=== PATIENT | female | born 1935 | race Caucasian/White ===

== ENCOUNTER → 2016-09-16 | Outpatient (CLI) | payer OTHER, BC ==
[2016-09-16 16:57] LABS: HEMATOCRIT 47.8 % (37-47); MEAN CELL VOLUME 91.9 fL (80-100); MEAN CORPUSCULAR HEMOGLOBIN 31.5 pg (25-34); MEAN CORPUSCULAR HGB CONC 34.3 g/dl (32-36); MEAN PLATELET VOLUME 10.1 fL (7.4-10.4); PLATELET COUNT 216 K/uL (130-400); WHITE BLOOD COUNT 7.06 K/uL (4.8-10.8)
[2016-09-16 17:16] LABS: ALB/GLOB RATIO 1.2 (0.9-2); ALT/SGPT 24 U/L (12-78); AST/SGOT 22 U/L (15-37); BLOOD UREA NITROGEN 22 mg/dl (7-18); BUN/CREATININE RATIO 22.2 (10-20); CALCIUM 8.4 mg/dl (8.5-10.1); CARBON DIOXIDE 25 mmol/L (21-32); CHLORIDE 109 mmol/L (98-107); CHOLESTEROL 212 mg/dl (0-200); GLUCOSE 89 mg/dl (70-99); POTASSIUM 4.1 mmol/L (3.5-5.1); SODIUM 144 mmol/L (136-145); TRIGLYCERIDES 145 mg/dl (0-150); VERY LOW DENSITY LIPOPROT CALC 29 mg/dl
[2016-09-16 17:23] LABS: ALKALINE PHOSPHATASE 80 U/L (45-117); CHOLESTEROL/HDL RATIO 3.2; HDL CHOLESTEROL 66 mg/dl; LDL CHOLESTEROL CALCULATED 117 mg/dl
== END | disposition home or self-care (01) ==
LOC: C.LABBFT 15:12
PROVIDERS: ATTEND Internal Medicine
DX: E78.5 Hyperlipidemia, unspecified (principal)

== ENCOUNTER 2020-05-08 18:54 | Inpatient (IN) ==
[2020-05-08 19:41] LABS: Basophils # (auto) 0.03 K/uL (0-0.2); Basophils % (auto) 0.3 %; Eosinophils % (auto) 3.2 %; Hematocrit (blood only) 45.7 % (37-47); Hemoglobin 14.7 g/dL (12.0-16.0); Immature Granulocytes # (auto) 0.06 K/uL (0.00-0.02); Immature Granulocytes % (auto) 0.6 %; Lymphocytes # (auto) 2.11 K/uL (1.2-3.4); Lymphocytes % (auto) 22.8 %; Mean Corpuscular Hemoglobin 29.3 pg (25-34); Mean Corpuscular Hgb Conc 32.2 g/dL (32-36); Mean Corpuscular Volume 91.2 fL (80-100); Mean Platelet Volume 9.5 fL (7.4-10.4); Monocytes # (auto) 0.68 K/uL (0.11-0.59); Monocytes % (auto) 7.3 %; Neutrophils # (auto) 6.09 K/uL (1.4-6.5); Neutrophils % (auto) 65.8 %; Platelet Count 253 K/uL (130-400); RDW Standard Deviation 56.5 fL (36.4-46.3); Red Blood Count 5.01 M/uL (4.2-5.4); White Blood Count 9.27 K/uL (4.8-10.8)
[2020-05-08 19:44] LABS: Appearance Urine Clear (Clear); Bacteria Urine Automated Negative (Negative); Bilirubin Urine Negative (Negative); Blood Urine Negative (Negative); Color Urine Yellow; Epithelial Cell Urine Auto >30 /lpf (0-5); Glucose Urine UA Negative (Negative); Ketones Urine Negative (Negative); Leukocyte Esterase Urine Trace (Negative); Nitrite Urine Negative (Negative); Protein Urine Negative (Negative); RBC Urine Automated 0-4 /hpf (0-4); Specific Gravity Urine 1.017 (1.000-1.030); Urobilinogen Urine Negative (Negative); pH Urine 5.5 (4.5-7.5)
--- NOTE | 2020-05-08 19:53 | XRay Report ---
XR chest 1V portable HISTORY: 84 years-old Female Chest Pain acute atypical chest pain COMPARISON: Chest radiograph 12/02/2018 TECHNIQUE: Portable AP view of the chest FINDINGS: Cardiac silhouette is mildly enlarged, unchanged. Calcified plaque of the thoracic aortic arch. No pn eumothorax, pleural effusion, airspace consolidation or overt pulmonary edema. Degenerative changes o f the shoulders and spine. Levoscoliosis of the lower thoracic spine. IMPRESSION: No acute process. ACT 112: Negative or not required by law. The above report was generated using voice recognition software. It may contain grammatical, syntax o r spelling errors. Electronically signed by: Kevin Garcia M.D. 05/08/2020 7:52 PM
[2020-05-08 20:10] LABS: Alanine Aminotransferase 48 U/L (12-78); Albumin Globulin Ratio 0.7 (0.9-2); Albumin Level 2.7 gm/dl (3.4-5.0); Alkaline Phosphatase 241 U/L (45-117); BUN Creatinine Ratio 19.1 (10-20); Bilirubin,Total 0.7 mg/dl (0.2-1); Blood Urea Nitrogen 19 mg/dl (7-18); Calcium 8.9 mg/dl (8.5-10.1); Carbon Dioxide 26 mmol/L (21-32); Chloride 110 mmol/L (98-107); Creatinine Clr Calc Pharmacy 28.7 ml/min; Est GFR (African American) 58.4; Est GFR (Non-African American) 50.4; Globulin 3.9 gm/dl (2.5-4.0); Glucose 70 mg/dl (70-99); NT Pro B Type Natriuretic Pept 3551 pg/ml (0-1800); Phosphorus 3.6 mg/dl (2.5-4.9); Sodium 143 mmol/L (136-145); Total Protein 6.6 gm/dl (6.4-8.2)
[2020-05-08 20:12] LABS: Lipase 159 U/L (73-393); Troponin I < 0.015 ng/ml (0-0.045)
--- NOTE | 2020-05-08 20:15 | CT Scan Report ---
CT head/brain wo con CLINICAL HISTORY: 84 years-old Female with fall pain. Acute head and neck injury status post fall TECHNIQUE: Multiple axial CT images of the head were obtained without contrast. A dose lowering tech nique was utilized adhering to the principles of ALARA. COMPARISON: CT cervical spine of same day FINDINGS: No acute intracranial hemorrhage, midline shift, intracranial mass, hydrocephalus, territorial ischem ia or abnormal extra-axial collection. Age-related involutional changes. Patchy white matter hypodens ities suggest chronic microvascular ischemic disease. Cerebral vascular calcifications. The calvarium is intact. Left posterior parietal scalp hematoma, 2.9 x 1.0 cm. No opaque foreign body . Prior bilateral lens replacement. The paranasal sinuses, mastoid air cells, and middle ear cavities are clear. IMPRESSION: 1. No acute intracranial abnormality or calvarial fracture. 2. Small left posterior parietal scalp hematoma. ACT 112: Negative or not required by law. The above report was generated using voice recognition software. It may contain grammatical, syntax o r spelling errors. Electronically signed by: Kevin Garcia M.D. 05/08/2020 8:14 PM
--- NOTE | 2020-05-08 20:21 | CT Scan Report ---
CT cervical spine wo con CLINICAL HISTORY: 84 years-old Female with pain fall. Acute neck pain status post fall COMPARISON: MRI cervical spine 04/08/2007 TECHNIQUE: Multiple axial CT images of the cervical spine were obtained without contrast. A dose low ering technique was utilized adhering to the principles of ALARA. FINDINGS: Demineralized appearance of the bones. Kyphotic curvature of the mid cervical spine. 3 mm anterolisth esis C2 on C3, 2 mm anterolisthesis C7 on T1, both of which are likely on a degenerative basis. Sever e degeneration with partially calcified pannus at the C1-C2 articulation. There is advanced multileve l disc space narrowing and spondylitic spurring with moderate posterior disc osteophyte complex forma tions and severe facet arthrosis. No definite acute fracture or subluxation. Convex left curvature. M ultilevel foraminal narrowing. Mastoid air cells and middle ear cavities are clear. No pneumothorax. No paravertebral edema. Calcified plaque of the carotid bulbs and proximal internal carotid arteries. Multinodular thyroid. IMPRESSION: 1. No acute fracture or subluxation. 2. Kyphotic curvature with advanced multilevel degenerative changes as above. ACT 112: Negative or not required by law. The above report was generated using voice recognition software. It may contain grammatical, syntax o r spelling errors. Electronically signed by: Kevin Garcia M.D. 05/08/2020 8:19 PM
--- NOTE | 2020-05-08 20:44 | CT Scan Report ---
CT chest wo con, CT abd pelvis wo con CT DOSE: 1364.14 mGy.cm CLINICAL HISTORY: 84 years-old Female with pain fall. Acute chest and abdominal trauma status post f all TECHNIQUE: Multiaxial CT images of the chest, abdomen and pelvis were performed without contrast. A dose lowering technique was utilized adhering to the principles of ALARA. COMPARISON: CT abdomen and pelvis 06/19/2019 FINDINGS: CT CHEST: 1.2 cm right thyroid nodule. No adenopathy. Moderate cardiomegaly with moderate to extensive coronary artery calcifications. No thoracic aortic aneurysm. Calcified plaque of the thoracic aorta. No media stinal hematoma identified. There is no pneumothorax or pleural effusion. Respiratory motion artifact limits evaluation of the lungs. Mild emphysema with bronchial wall thickening suggestive of bronchit is. Mild linear subsegmental atelectasis of the medial segment right middle lobe and inferior segment lingula. 3 mm calcified granuloma of the basal left lower lobe. Mild tracheobronchial secretions. Br east parenchyma and soft tissues are unremarkable. Degenerative changes of the shoulders and spine. N o acute fracture identified. Suggestion of a few healed remote left-sided rib fractures. CT ABDOMEN/PELVIS: Motion degraded exam. Study is limited without the use of IV contrast. No pneumatosis or pneumoperito neum. Unremarkable spleen, adrenal glands and pancreas. Mildly distended gallbladder. Unenhanced live r appears unremarkable. Mild nonspecific bilateral perinephric stranding. Probable cyst of the bilate ral kidneys redemonstrated. There is a 2 mm calcification of the inferior pole left kidney suggestive of a calculus versus ureteral calcification. 7 mm nonobstructing calculus of the left renal pelvis. Mildly distended urinary bladder. 3.9 x 3.0 cm ovoid cystic lesion of the right adnexum redemonstrate d with an adjacent irregular 1.3 cm calcification. Visualized uterus is unremarkable. Calcified plaqu e and tortuosity of the abdominal aorta. No adenopathy. Small hiatal hernia. No bowel obstruction or bowel wall thickening. Fluid. Colonic diverticulosis wit hout acute diverticulitis. Noninflamed appendix. Mild generalized body wall edema. Demineralized appe arance of the bones. Degenerative changes of the spine, pelvis and hips. No acute fracture. Lumbar le voscoliosis. IMPRESSION: 1. Motion degraded exam without acute posttraumatic intrathoracic, intra-abdominal or intrapelvic abn ormality identified. 2. No acute fracture. 3. Unchanged ovoid 3.9 cm cystic lesion of the right adnexum with mural calcification. 4. Colonic diverticulosis without acute diverticulitis. 5. Nonobstructing left nephrolithiasis includes a 7 mm calculus of the left renal pelvis. 6. Additional findings as above. ACT 112: Negative or not required by law. Electronically signed by: Kevin Garcia M.D. 05/08/2020 8:42 PM
[2020-05-08 20:48] LABS: Potassium 3.6 mmol/L (3.5-5.1)
[2020-05-08 20:53] LABS: Bilirubin Direct 0.2 mg/dl (0-0.2); Magnesium 2.2 mg/dl (1.8-2.4)
[2020-05-08 20:59] LABS: Partial Thromboplastin Ratio 1.6; Prothrombin Time 10.2 Seconds (9.0-12.0)
[2020-05-08 21:24] LABS: Partial Thromboplastin Time 45.3 Seconds (21.0-31.0)
[2020-05-08] MEDS ORDERED: SODIUM CHLORIDE 0.9% 250 ML IV ONE (22:00)
--- NOTE | 2020-05-08 22:41 | Emergency Department Note ---
Impression & Plan Generalized weakness, Recurrent falls, Hematoma of left parietal scalp ED Provider Note NAME: ROSI THOMAS AGE: 84 SEX: F ARRIVES VIA: Ambulance INFORMANT: Patient, ED PROVIDER(S): Lewis Medina MD CHIEF COMPLAINT: Recurrent falls, back pain, weakness PLAN: Disposition: Admit MEDICAL DECISION MAKING: The patient is a pleasant 84-year-old woman with a past medical history of COPD/emphysema, migraine headaches, nephrolithiasis, depression with anxiety, suspected early dementia presents emergency department accompanied by her sister with concern for generalized weakness and frequent falls with complaints of back pain and decreased urination. She was seen by her PCPs office yesterday for evaluation of similar symptoms and was offered physical therapy to help with generalized strengthening but she declined at that time. She was also being managed for lower extremity edema which had improved while on Lasix. However there was concern about having borderline hypotension and so there were no dose adjustments made. The patient denies any chest pain, shortness of breath, nausea, vomiting, diarrhea, urinary symptoms, fevers, chills. On arrival the patient is fatigued appearing but no acute distress, afebrile wi th stable vital signs. She appears clinically dry though with residual lower extremity edema. She has a scant intermittent wheeze but is otherwise clear. She has mild tenderness of the paraspinal muscles of her thoracic and lumbar spine without midline tenderness or step-offs. She has generalized weakness throughout with 4/5 strength in all extremities. There is no focal weakness. Pelvis and hips are stable with full range of motion. EKG without overt acute ischemia. Chest x-ray negative for acute process. CT of the head, C-spine, chest, abdomen pelvis negative for acute traumatic fin dings. WBC, H/H and platelets within normal limits. Chemistry without acidosis. Electrolytes and LFTs unremarkable. Troponin negative/undetectable. BNP 3500 without prior values for comparison. UA without convincing evidence of infection. I did review the patient's findings with the patient and her sister at the bedside. We did discuss the patient's symptoms of generalized weakness and concern for her safety at home. Ultimately the patient was agreeable for admission for PT OT evaluation and potential placement for strengthening. Dr. Graves, [facility] hospitalist, will evaluate the patient for admission. Triage Nursing notes reviewed and agree them. Additional history obtained from sister Prior medical records reviewed Vital Signs: reviewed and remarkable for no significant abnormalities Differential diagnosis: Infection, dehydration, metabolic abnormality, hypo/hyperglycemia, electrolyte disturbance, anemia, hypoxia, cardiac sources, intracerebral event, toxicologic, neurologic, as well as other pathologies. ER treatment provided: See below. Diagnostics interpreted by me: ECG: Sinus bradycardia, 57 bpm, incomplete right bundle branch block, nonspecific ST abnormality, no overt ST elevation, QTc 482, QRS 92. Cardiac Monitoring: An order for continuous cardiac monitoring was placed and demonstrated Sinus bradycardia, 57 bpm, no ectopy. Laboratory studies: See below Imaging studies: XR chest 1V portable HISTORY: 84 years-old Female Chest Pain acute atypical chest pain COMPARISON: Chest radiograph 12/02/2018 TECHNIQUE: Portable AP view of the chest FINDINGS: Cardiac silhouette is mildly enlarged, unchanged. Calcified plaque of the thoracic aortic arch. No pneumothorax, pleural effusion, airspace consolidation or overt pulmonary edema. Degenerative changes of the shoulders and spine. Levoscoliosis of the lower thoracic spine. IMPRESSION: No acute process. CT head/brain wo con CLINICAL HISTORY: 84 years-old Female with fall pain. Acute head and neck injury status post fall TECHNIQUE: Multiple axial CT images of the head were obtained without contrast. A dose lowering technique was utilized adhering to the principles of ALARA. COMPARISON: CT cervical spine of same day FINDINGS: No acute intracranial hemorrhage, midline shift, intracranial mass, hydrocephalus, territorial ischemia or abnormal extra-axial collection. Age- related involutional changes. Patchy white matter hypodensities suggest chronic microvascular ischemic disease. Cerebral vascular calcifications. The calvarium is intact. Left posterior parietal scalp hematoma, 2.9 x 1.0 cm. No opaque foreign body. Prior bilateral lens replacement. The paranasal sinuses, mastoid air cells, and middle ear cavities are clear. IMPRESSION: 1. No acute intracranial abnormality or calvarial fracture. 2. Small left posterior parietal scalp hematoma. ACT 112: Negative or not required by law. -- CT cervical spine wo con CLINICAL HISTORY: 84 years-old Female with pain fall. Acute neck pain status post fall COMPARISON: MRI cervical spine 04/08/2007 TECHNIQUE: Multiple axial CT images of the cervical spine were obtained without contrast. A dose lowering technique was utilized adhering to the principles of ALARA. FINDINGS: Demineralized appearance of the bones. Kyphotic curvature of the mid cervical spine. 3 mm anterolisthesis C2 on C3, 2 mm anterolisthesis C7 on T1, both of which are likely on a degenerative basis. Severe degeneration with partially calcified pannus at the C1-C2 articulation. There is advanced multilevel disc space narrowing and spondylitic spurring with moderate posterior disc osteophyte complex formations and severe facet arthrosis. No definite acute fracture or subluxation. Convex left curvature. Multilevel foraminal narrowing. Mastoid air cells and middle ear cavities are clear. No pneumothorax. No paravertebral edema. Calcified plaque of the carotid bulbs and proximal internal carotid arteries. Multinodular thyroid. IMPRESSION: 1. No acute fracture or subluxation. 2. Kyphotic curvature with advanced multilevel degenerative changes as above. -- CT chest wo con, CT abd pelvis wo con CT DOSE: 1364.14 mGy.cm CLINICAL HISTORY: 84 years-old Female with pain fall. Acute chest and abdominal trauma status post fall TECHNIQUE: Multiaxial CT images of the chest, abdomen and pelvis were performed without contrast. A dose lowering technique was utilized adhering to the principles of ALARA. COMPARISON: CT abdomen and pelvis 06/19/2019 FINDINGS: CT CHEST: 1.2 cm right thyroid nodule. No adenopathy. Moderate cardiomegaly with moderate to extensive coronary artery calcifications. No thoracic aortic aneurysm. Calcified plaque of the thoracic aorta. No mediastinal hematoma identified. There is no pneumothorax or pleural effusion. Respiratory motion artifact limits evaluation of the lungs. Mild emphysema with bronchial wall thickening suggestive of bronchitis. Mild linear subsegmental atelectasis of the medial segment right middle lobe and inferior segment lingula. 3 mm calcified granuloma of the basal left lower lobe. Mild tracheobronchial secretions. Breast parenchyma and soft tissues are unremarkable. Degenerative changes of the shoulders and spine. No acute fracture identified. Suggestion of a few healed remote left-sided rib fractures. CT ABDOMEN/PELVIS: Motion degraded exam. Study is limited without the use of IV contrast. No pneumatosis or pneumoperitoneum. Unremarkable spleen, adrenal glands and pancreas. Mildly distended gallbladder. Unenhanced liver appears unremarkable. Mild nonspecific bilateral perinephric stranding. Probable cyst of the bilateral kidneys redemonstrated. There is a 2 mm calcification of the inferior pole left kidney suggestive of a calculus versus ureteral calcification. 7 mm nonobstructing calculus of the left renal pelvis. Mildly distended urinary bladder. 3.9 x 3.0 cm ovoid cystic lesion of the right adnexum redemonstrated with an adjacent irregular 1.3 cm calcification. Visualized uterus is unremarkable. Calcified plaque and tortuosity of the abdominal aorta. No adenopathy. Small hiatal hernia. No bowel obstruction or bowel wall thickening. Fluid. Colonic diverticulosis without acute diverticulitis. Noninflamed appendix. Mild generalized body wall edema. Demineralized appearance of the bones. Degenerative changes of the spine, pelvis and hips. No acute fracture. Lumbar levoscoliosis. IMPRESSION: 1. Motion degraded exam without acute posttraumatic intrathoracic, intra- abdominal or intrapelvic abnormality identified. 2. No acute fracture. 3. Unchanged ovoid 3.9 cm cystic lesion of the right adnexum with mural calcification. 4. Colonic diverticulosis without acute diverticulitis. 5. Nonobstructing left nephrolithiasis includes a 7 mm calculus of the left renal pelvis. 6. Additional findings as above. Consultation(s): Dr. Graves, [facility] hospitalist. HPI: The patient is a pleasant 84-year-old woman with a past medical history of COPD/emphysema, migraine headaches, nephrolithiasis, depression with anxiety, suspected early dementia presents emergency department accompanied by her sister with concern for generalized weakness and frequent falls with complaints of back pain and decreased urination. She was seen by her PCPs office yesterday for evaluation of similar symptoms and was offered physical therapy to help with generalized strengthening but she declined at that time. She was also being managed for lower extremity edema which had improved while on Lasix. However there was concern about having borderline hypotension and so there were no dose adjustments made. The patient denies any chest pain, shortness of breath, nausea, vomiting, diarrhea, urinary symptoms, fevers, chills. ROS: See above HPI for pertinent positives & negatives. A total of 10 systems reviewed and were otherwise negative. PAST MEDICAL HISTORY:See Below PAST SURGICAL HISTORY:See Below FAMILY HISTORY:See Below SOCIAL HISTORY:See Below HOME MEDICATIONS:See Below ALLERGIES:See Below VITALS:See Below PHYSICAL EXAMINATION: GENERAL: Awake, alert, fatigued/cachectic-appearing, in no distress HENT: Normocephalic. Left posterior pariental scalp hematoma. No bony crepitus. Oropharynx with dry mucous membranes and otherwise unremarkable. EYES: Normal conjunctiva. Sclera non-icteric. NECK: Supple. No nuchal rigidity. FROM. No JVD. RESPIRATORY: Clear to auscultation. CARDIAC: Regular rate, normal rhythm. Extremities warm and well perfused. Pulses equal. ABDOMEN: Soft, non-distended. No tenderness to palpation. No rebound or guarding. No masses. RECTAL: Deferred. MUSCULOSKELETAL: Chest examination reveals no tenderness. The patient has severe kyphosis of her thoracic spine. No midline tenderness or step-offs though she does have mild tenderness of the paraspinal muscles of her thoracic and lumbar spine. No CVA tenderness to palpation. No joint edema. LOWER EXTREMITIES: Calves are equal size bilaterally and non-tender. No edema. No discoloration. NEURO: Normal sensorium. No focal sensory or motor deficits noted. Generalized weakness with 4/5 strength x4 extremities. SKIN: No rash or jaundice noted. Lewis Medina MD Past Med/Surg History Medical History Acute bronchitis COPD with chronic bronchitis and emphysema Cough Depression with anxiety Diplopia Disease of jaw Fatigue Gross hematuria Hearing loss Hematuria Impacted cerumen of both ears Impacted cerumen of right ear Itching of ear Kidney stone on left side Migraine headache Muscle spasm Neck pain Nephrolithiasis Sensorineural hearing loss (SNHL) of left ear with restricted hearing of right ear Sensorineural hearing loss of both ears Sinusitis, acute Tremor Vertigo Family History Mother Stroke syndrome Father Renal cancer Brother Prostate cancer Systemic lupus erythematosus Social History Smoking Status: Current every day smoker Tobacco Type: Cigarettes packs per day: 0.75; Current Living Situation: Alone current occupational status: retired Feels Safe at Home: Yes Allergies Allergies Allergy/AdvReac Type Severity Reaction Status Date / Time No Known Drug Allergies Allergy Verified 05/07/20 11:31 Home Meds Previous Rx's Medication Instructions Recorded betamethasone dipropionate 0.05 % 1 appln TOP BID #45 gm 02/19/20 topical cream furosemide 20 mg tablet 20 mg PO DAILY #30 tab 04/08/20 ofloxacin 0.3 % ear drops 5 drp OTIC (EAR) BID 7 Days #10 ml 04/08/20 cyclobenzaprine 10 mg tablet 10 mg PO TID PRN #90 tab 04/25/20 propranolol 60 mg capsule,24 60 mg PO DAILY #30 cap 04/25/20 hr,extended release sertraline 100 mg tablet 100 mg PO BID #60 tab 04/25/20 doxycycline hyclate 100 mg capsule 100 mg PO DAILY #30 cap 05/02/20 Results & Data (ED) Vital Signs Vital Signs - 24 hr 05/08/20 19:15 05/08/20 21:30 05/08/20 23:01 Temperature 36.6 C Temperature Source Oral Pulse Rate 60 78 Pulse Rate [Left Finger] 58 L Respiratory Rate 18 16 23 Respiratory Effort / Characteristics Non-Labored Spontaneous Respiratory Depth Normal Respiratory Pattern Regular Blood Pressure 112/82 134/66 Blood Pressure [Right Arm] 91/61 L Blood Pressure Mean 92 89 Blood Pressure Mean [Right Arm] 71 Pulse Oximetry 97 94 96 Oxygen Delivery Method Room Air Sepsis Recent Fever Within 48 Hours No Sepsis New/Unexplained Change in Mental Status N/A Sepsis Action Taken by Nursing No Action Required Laboratory Data Attestation: I reviewed the patient's lab results. Result diagrams: 05/08/20 19:33 05/08/20 20:29 Lab Results 05/08/20 05/08/20 05/08/20 Range/Units 19:33 19:33 19:33 WBC 9.27 (4.8-10.8) K/uL RBC 5.01 (4.2-5.4) M/uL Hgb 14.7 (12.0-16.0) g/dL Hct 45.7 (37-47) % MCV 91.2 (80-100) fL MCH 29.3 (25-34) pg MCHC 32.2 (32-36) g/dL RDW Std Deviation 56.5 H (36.4-46.3) fL RDW Coeff of Jocelyn 17.0 H (11.5-14.5) % Plt Count 253 (130-400) K/uL MPV 9.5 (7.4-10.4) fL Immature Gran % (Auto) 0.6 % Neut % (Auto) 65.8 % Lymph % (Auto) 22.8 % Parker % (Auto) 7.3 % Eos % (Auto) 3.2 % Baso % (Auto) 0.3 % Neut # (Auto) 6.09 (1.4-6.5) K/uL Lymph # (Auto) 2.11 (1.2-3.4) K/uL Parker # (Auto) 0.68 H (0.11-0.59) K/uL Eos # (Auto) 0.30 (0-0.5) K/uL Baso # (Auto) 0.03 (0-0.2) K/uL Immature Gran # (Auto) 0.06 H (0.00-0.02) K/uL PT Cancelled INR Cancelled APTT Cancelled PTT Ratio Cancelled Sodium 143 (136-145) mmol/L Potassium (3.5-5.1) mmol/L Chloride 110 H (98-107) mmol/L Carbon Dioxide 26 (21-32) mmol/L Anion Gap 7.0 (3-11) BUN 19 H (7-18) mg/dl Creatinine 1.01 (0.6-1.2) mg/dl Est Cr Clr Drug Dosing 28.7 ml/min Est GFR ( Amer) 58.4 Est GFR (Non-Af Amer) 50.4 BUN/Creatinine Ratio 19.1 (10-20) Glucose 70 (70-99) mg/dl Calcium 8.9 (8.5-10.1) mg/dl Phosphorus 3.6 (2.5-4.9) mg/dl Magnesium (1.8-2.4) mg/dl Total Bilirubin 0.7 (0.2-1) mg/dl Direct Bilirubin (0-0.2) mg/dl AST (15-37) U/L ALT 48 (12-78) U/L Alkaline Phosphatase 241 H (45-117) U/L Troponin I < 0.015 (0-0.045) ng/ml NT-Pro-B Natriuret Pep 3551 H (0-1800) pg/ml Total Protein 6.6 (6.4-8.2) gm/dl Albumin 2.7 L (3.4-5.0) gm/dl Globulin 3.9 (2.5-4.0) gm/dl Albumin/Globulin Ratio 0.7 L (0.9-2) Lipase 159 (73-393) U/L TSH 2.710 (0.300-4.500) uIu/ml Urine Color Urine Appearance (Clear) Urine pH (4.5-7.5) Ur Specific [place] (1.000-1.030) Urine Protein (Negative) Urine Glucose (UA) (Negative) Urine Ketones (Negative) Urine Blood (Negative) Urine Nitrite (Negative) Urine Bilirubin (Negative) Urine Urobilinogen (Negative) Ur Leukocyte Esterase (Negative) Urine WBC (Auto) (0-5) /hpf Urine RBC (Auto) (0-4) /hpf U Hyaline Cast (Auto) (0-5) /lpf U Epithel Cells (Auto) (0-5) /lpf Urine Bacteria (Auto) (Negative) 05/08/20 05/08/20 05/08/20 Range/Units 19:33 20:29 20:29 WBC (4.8-10.8) K/uL RBC (4.2-5.4) M/uL Hgb (12.0-16.0) g/dL Hct (37-47) % MCV (80-100) fL MCH (25-34) pg MCHC (32-36) g/dL RDW Std Deviation (36.4-46.3) fL RDW Coeff of Jocelyn (11.5-14.5) % Plt Count (130-400) K/uL MPV (7.4-10.4) fL Immature Gran % (Auto) % Neut % (Auto) % Lymph % (Auto) % Parker % (Auto) % Eos % (Auto) % Baso % (Auto) % Neut # (Auto) (1.4-6.5) K/uL Lymph # (Auto) (1.2-3.4) K/uL Parker # (Auto) (0.11-0.59) K/uL Eos # (Auto) (0-0.5) K/uL Baso # (Auto) (0-0.2) K/uL Immature Gran # (Auto) (0.00-0.02) K/uL PT 10.2 INR 1.0 APTT 45.3 H* PTT Ratio 1.6 Sodium (136-145) mmol/L Potassium 3.6 (3.5-5.1) mmol/L Chloride (98-107) mmol/L Carbon Dioxide (21-32) mmol/L Anion Gap (3-11) BUN (7-18) mg/dl Creatinine (0.6-1.2) mg/dl Est Cr Clr Drug Dosing ml/min Est GFR ( Amer) Est GFR (Non-Af Amer) BUN/Creatinine Ratio (10-20) Glucose (70-99) mg/dl Calcium (8.5-10.1) mg/dl Phosphorus (2.5-4.9) mg/dl Magnesium 2.2 (1.8-2.4) mg/dl Total Bilirubin (0.2-1) mg/dl Direct Bilirubin 0.2 (0-0.2) mg/dl AST 29 (15-37) U/L ALT (12-78) U/L Alkaline Phosphatase (45-117) U/L Troponin I (0-0.045) ng/ml NT-Pro-B Natriuret Pep (0-1800) pg/ml Total Protein (6.4-8.2) gm/dl Albumin (3.4-5.0) gm/dl Globulin (2.5-4.0) gm/dl Albumin/Globulin Ratio (0.9-2) Lipase (73-393) U/L TSH (0.300-4.500) uIu/ml Urine Color Yellow Urine Appearance Clear (Clear) Urine pH 5.5 (4.5-7.5) Ur Specific [place] 1.017 (1.000-1.030) Urine Protein Negative (Negative) Urine Glucose (UA) Negative (Negative) Urine Ketones Negative (Negative) Urine Blood Negative (Negative) Urine Nitrite Negative (Negative) Urine Bilirubin Negative (Negative) Urine Urobilinogen Negative (Negative) Ur Leukocyte Esterase Trace H (Negative) Urine WBC (Auto) 1-5 (0-5) /hpf Urine RBC (Auto) 0-4 (0-4) /hpf U Hyaline Cast (Auto) 5-10 H (0-5) /lpf U Epithel Cells (Auto) >30 H (0-5) /lpf Urine Bacteria (Auto) Negative (Negative) Administered Medications Discontinued Medications Sodium Chloride (Nss) 250 mls @ 999 mls/hr IV .Q16M ONE Stop: 05/08/20 22:15 Last Infusion: 05/08/20 22:59 Dose: 0 mls/hr Documented by: [id number] Admin: 05/08/20 22:43 Dose: 999 mls/hr Documented by: [id number] Blood Pressure Blood Pressure Findings: Low blood pressure Blood Pressure Disposition: further management by hospitalist Discharge Plan Visit Data Chief Complaint: Fall Stated Complaint: TROUBLE AMBULATING ED Provider: Lewis Medina Discharge Problem: Generalized weakness, Recurrent falls, Hematoma of left parietal scalp Patient Disposition: Admitted As Inpatient Discharge Instructions Interventions: ED Discharge Assessment Last Done: 05/08/20 23:54
--- NOTE | 2020-05-08 23:22 | History & Physical Report ---
Date of Service May 08, 2020 Assessment & Plan (1) Generalized weakness: Suzette León is an 84 year old woman with history of lower limb edema, COPD, and frequent falls who presents with further falls. Falls Thankfully no fractures, no bleed on CT scan Patient does not appear to have UTI, pressure slightly low, but improved with IV fluid WIll hold propranolol, reviewing record not entirely clear why patient is on it. Will admit to telemetry for further cardiac monitoring Will get echo in AM for further evaluation of her CHF Does not describe sycnope and witnessed falls have all been mechanical, more likely than not this is progressive weakness and osteoarthritis bolstered by some decline in her nutritional status as evidenced by a drop in albumin and possibly some decline in her cognitive status. PT/OT and case management consulted Daughter on way from [place] has offered to become caregiver for patient, likely that she will do well with help preparing meals and surveillance CHF Patient with crackles on exam, elevated BNP and lower limb edema, started on lasix by her PCP no echo performed WIll check echo this admission Lasix may be contributing to some hypotension Breathing well on room air at present, and hypertensive will give 20 mg IV lasix in am and continue to monitor volume status COPD Not on any medications or inhalers though she tells me her breathing has been at her baseline. She has dyspnea on exertion, may benefit from inhaler Duonebs ordered for wheezing SOB while here, would recommend at least albuterol inhaler on discharge as patient did have expiratory wheeze during my exam Elevated APTT Suggestive of Intrinsic pathway dysfunction factors VIII IX or XI Patient not on blood thinner unsure of cause Differential including VWD, lupus anticoagulant, malignancy or hemophilia Despite dozens of falls patient has not had any major bleeding events so doubtful that this deficiency is of extreme clinical importance or it would likely have presented itself earlier. With history of weight loss and progressive weakness and advanced age malignancy certainly not out of the question, but no other clear abnormalities on history or labwork Patient does have bruising and hematoma on scalp F/E/N: Regular Diet nutrition consulted DVT PPx: Lovenox 30 mg Dispo: Admit MEd surg for further evaluation of her falls and to make sure we discharge to safe care. (2) Recurrent falls: (3) Hematoma of left parietal scalp: (4) Frequent falls: (5) Cognitive impairment: History of Present Illness Primary Care Provider: Saroj Martins MD Suzette Harden is an 84 year old woman with a past medical history significant for COPD with chronic fatigue on exertion (though not on any inhalers), Senorineural hearing loss with hearing aids, OSteoarthritis, Kyphoscoliosis and Frequent falls who presents with frequent falls. She has had four falls in the last 24 hours and more falls than she can count in the past year. She attributes them to her kyphoscoliosis and weakness. She does not endorse any palpitations, any dizziness or lightheadedness, no loss of consciousness at any time. Some of these falls have been witnessed but most occur while she is at home in her yard gardening. She lives alone, her nearest family member is her also elderly sister. Her daughter from [place] is driving in to see patient now and has offered to let her live with her. She has about a sixty pack year smoking history, drinks about 12 bud lights per week, no drug use Lives alone. We had a long discussion about code status and patient at this time would like to be a full code. We talked about pros and cons but she is unsure. She wants to talk to her daughter who is coming in tomorrow and be a full code for now. Hearing and cognitive difficulties made discussion difficult. Allergies Allergy/AdvReac Type Severity Reaction Status Date / Time No Known Drug Allergies Allergy Verified 05/07/20 11:31 Home Medications Home Medications Medication Instructions Recorded Confirmed Type betamethasone dipropionate 0.05 % 1 appln TOP BID #45 gm 02/19/20 05/08/20 Rx topical cream furosemide 20 mg tablet 20 mg PO DAILY #30 tab 04/08/20 05/08/20 Rx ofloxacin 0.3 % ear drops 5 drp OTIC (EAR) BID 7 Days #10 ml 04/08/20 05/08/20 Rx cyclobenzaprine 10 mg tablet 10 mg PO TID PRN #90 tab 04/25/20 05/08/20 Rx propranolol 60 mg capsule,24 60 mg PO DAILY #30 cap 04/25/20 05/08/20 Rx hr,extended release sertraline 100 mg tablet 100 mg PO BID #60 tab 04/25/20 05/08/20 Rx doxycycline hyclate 100 mg capsule 100 mg PO DAILY #30 cap 05/02/20 05/08/20 Rx Past Med/Surg History Medical History Acute bronchitis COPD with chronic bronchitis and emphysema Cough Depression with anxiety Diplopia Disease of jaw Fatigue Gross hematuria Hearing loss Hematuria Impacted cerumen of both ears Impacted cerumen of right ear Itching of ear Kidney stone on left side Migraine headache Muscle spasm Neck pain Nephrolithiasis Sensorineural hearing loss (SNHL) of left ear with restricted hearing of right ear Sensorineural hearing loss of both ears Sinusitis, acute Tremor Vertigo Family History Mother Stroke syndrome Father Renal cancer Brother Prostate cancer Systemic lupus erythematosus Social History Smoking Status: Current every day smoker Tobacco Type: Cigarettes packs per day: 0.75; Do You Dip or Chew Tobacco: No; Hx Alcohol Use: Yes Alcohol type: beer Hx Substance Use: No Preferred Language: Tongan Communication Ability: Effective Electronic News Gathering Editor Required: No Beliefs That Will Affect Care: None Current Living Situation: Alone current occupational status: retired Other Information That Helps Us Care for You: No Feels Safe at Home: Yes Safety Concerns: Feels Safe At This Time Review of Systems Constitutional: + weakness and + weight loss; no fever and no chills Eyes: no problem reported Ear, Nose, Mouth, Throat: no problem reported Respiratory: + cough (CHronic) and + dyspnea on exertion; no chest congestion and no dyspnea Cardiovascular: + dyspnea on exertion and + edema (equal bilaterally up past her knees. Compression stockings on ); no chest pain, no dyspnea at rest, no palpitations, no lightheadedness and no calf pain Gastrointestinal: no abdominal pain, no nausea, no vomiting, no change in stools, no blood in stools and no melena Genitourinary: + urinary hesitancy; no dysuria and no hematuria Physical Exam Constitutional: well developed and + cachectic; + not well nourished, no acute distress and no altered mental status Eyes: PERRL, conjunctivae normal, anicteric sclerae ENMT: external ear and nose normal, oropharynx normal Respiratory: normal respiratory effort and + cough; no respiratory distress Auscultation: + crackles and + wheezes (expiratory) Cardiovascular: Rate/Rhythm: regular rate and regular rhythm Heart Sounds: no click, no gallop, no murmur and no cardiac rub Extremities: + pedal edema and + edema; no calf tenderness Gastrointestinal (Abdomen): normal bowel sounds, soft, nontender, no hepatosplenomegaly Musculoskeletal: Hip pain, decreased range of motion of bilateral hips right worse than left, no bony tenderness to palpation or joint palpation. Knot on back of head, tender, swollen Skin: Echhymoses throughout body Neurologic: patellar DTR's 2+ bilat, sensation intact and PERRL, EOMI, accommodation nl, no face palsy, no dysarthria CN's II-XI intact bilaterally and moves all extremities Strength equal and 4+ in all extremities, communications attendant strength weak secondary to severe arthritis but equal bilaterally Results & Data Results & Data ([facility]) Vital Signs (Past 12 Hours) Vital Signs Temp Pulse Pulse Resp BP BP Pulse Ox 05/08/20 23:01 78 23 134/66 96 05/08/20 21:30 58 L 16 91/61 L 94 05/08/20 19:15 36.6 C 60 18 112/82 97 Supervising Physician Co-Signing Physician Notes Attending addendum: I have physically seen this patient, have supervised the medical residents a ctivities, and agree with the H&P unless as otherwise noted. Assessment and Plan: Increased frequency of falls/generalized weakness- Treat underlying urinary tract infection. Patient is relatively hypotensive, will therefore hold propranolol and furosemide. Consult PT/OT We will give IV albumin his pressure drops further. Ultimate discharge plan is for patient to live with daughter, who lives in [place], and who is coming to take care of patient. UTI- Empiric treatment with ceftriaxone IV Follow urine culture and sensitivities CHF- Likely in part secondary to third spacing with hypoalbuminemia Will give combination of IV albumin with Lasix. Remaining orders and notations as noted Resident Activity Tracking Resident Involvement: Resident Care Provided Care Provided: Adult Hospital Medicine
[2020-05-09] MEDS ORDERED: POLYETHYLENE (MIRALAX) 17 GM PACK PO PRN (02:53)
[2020-05-09] MEDS ORDERED: ONDANSETRON INJ 2 MG/ML 2 ML VIAL IV PRN (02:53)
[2020-05-09] MEDS ORDERED: ACETAMINOPHEN 325 MG TAB PO PRN (02:53)
[2020-05-09] MEDS ORDERED: CYCLOBENZAPRINE HCL 10 MG TAB PO PRN (03:06)
[2020-05-09] MEDS: ENOXAPARIN INJ 30 MG/0.3 ML SYR SQ SCH (08:52)
[2020-05-09] MEDS: BETAMETHASONE DIP AUG (DIPROLENE) 0.05% CR 15 GM TUBE EXT SCH ×2 (10:22→20:11)
[2020-05-09] MEDS: OFLOXACIN 0.3% OP SOLN 5 ML BTL OTR SCH ×2 (10:22→20:11)
[2020-05-09] MEDS: FUROSEMIDE 20 MG TAB PO SCH (10:22)
[2020-05-09] MEDS: SERTRALINE HCL 100 MG TABLET PO SCH ×2 (10:23→20:12)
[2020-05-09] MEDS: DOXYCYCLINE HYCLATE 100 MG CAP PO SCH (10:23)
--- NOTE | 2020-05-09 18:05 | XCELERA ---
[id number]
--- NOTE | 2020-05-09 19:41 | Hospitalist Progress Note ---
Date of Service May 09, 2020 Assessment & Plan (1) Recurrent falls: Falls Thankfully no fractures, no bleed on CT scan Patient does not appear to have UTI, pressure slightly low, but improved with IV fluid holding propranolol - follow vitals echo pending although i don't anticipate significant findings PT/OT and case management consulted Daughter on way from [place] has offered to become caregiver for patient, likely that she will do well with help preparing meals and surveillance - although will need to see how pt does as far as simply safety at home CHF -uncertain baseline -does not appear volume overloaded now -echo pending COPD -adequate oxygenation (low end of acceptable but still acceptable) -follow -no complaints of dyspnea Elevated APTT Suggestive of Intrinsic pathway dysfunction factors VIII IX or XI Patient not on blood thinner unsure of cause Differential including VWD, lupus anticoagulant, malignancy or hemophilia Despite dozens of falls patient has not had any major bleeding events so doubtful that this deficiency is of extreme clinical importance or it would likely have presented itself earlier. With history of weight loss and progressive weakness and advanced age malignancy certainly not out of the question, but no other clear abnormalities on history or labwork Patient does have bruising and hematoma on scalp F/E/N: Regular Diet nutrition consulted DVT PPx: Lovenox 30 mg Dispo: PT/OT eval and treat, ?home w dtr vs rehab Admission and Anticipated Discharge Date Admission Date: May 08, 2020 Subjective eating lunch. no specific complaints but expresses ambivalence about whether she will want to work wtih PT and skepticm on going to rehab. then notes that she thought this would just get better overnight. we then discuss that it won't and will likely take some hard work and rehab, which she acknowledges case management later noted she does not want to choose dispo until her dtr arrives from [place]. Review of Systems Review of Systems: All systems reviewed & are unremarkable except as noted in HPI & below Physical Exam Physical Exam: gen aao pleasant nad heent nc at mmm breathing unlabored no accessory muscles good effort skin no rashes no pallor or icterus neuro no focal deficits Results & Data Results & Data ([facility]) Vital Signs (Past 12 Hours) Vital Signs Temp Pulse Resp BP BP Pulse Ox 05/09/20 15:00 97.7 F 76 18 149/102 H 91 05/09/20 11:18 97.9 F 79 18 98/52 L 96 PG Care Time/CCT Total # of Minutes Spent Total Time Spent with Patient: Total time spent is greater than 50% in coordination of care (as documented) at patient's floor/unit and/or counseling patient: Coding Level of Care Code 30288 Subseq Hosp Care Lvl 2 Diagnoses Recurrent falls R29.6
--- NOTE | 2020-05-09 19:54 | Billing Data ---
Date of Service May 09, 2020 Coding Level of Care Code 02961 Initial Inpt Care Lvl 2
--- NOTE | 2020-05-09 19:55 | Electrocardiogram Report ---
Test Reason : Blood Pressure : / mmHG Vent. Rate : 057 BPM Atrial Rate : 057 BPM P-R Int : 136 ms QRS Dur : 092 ms QT Int : 496 ms P-R-T Axes : 058 043 058 degrees QTc Int : 482 ms Poor data quality, interpretation may be adversely affected Sinus bradycardia Incomplete right bundle branch block Nonspecific ST and T wave abnormality Abnormal ECG When compared with ECG of 30-AUG-2007 15:38, T wave amplitude has decreased in Anterolateral leads Confirmed by Jeramie Hair ([id number]) on 05/09/2020 7:54:59 PM Referred By: REFERRED SELF Confirmed By:Jeramie Hair
[2020-05-10 07:47] LABS: Basophils # (auto) 0.02 K/uL (0-0.2); Basophils % (auto) 0.3 %; Eosinophils # (auto) 0.34 K/uL (0-0.5); Eosinophils % (auto) 5.2 %; Hematocrit (blood only) 38.2 % (37-47); Hemoglobin 12.2 g/dL (12.0-16.0); Immature Granulocytes # (auto) 0.04 K/uL (0.00-0.02); Immature Granulocytes % (auto) 0.6 %; Lymphocytes # (auto) 1.66 K/uL (1.2-3.4); Lymphocytes % (auto) 25.6 %; Mean Corpuscular Hgb Conc 31.9 g/dL (32-36); Mean Corpuscular Volume 90.7 fL (80-100); Mean Platelet Volume 9.6 fL (7.4-10.4); Monocytes # (auto) 0.58 K/uL (0.11-0.59); Neutrophils # (auto) 3.84 K/uL (1.4-6.5); Neutrophils % (auto) 59.3 %; Platelet Count 235 K/uL (130-400); RDW Standard Deviation 55.5 fL (36.4-46.3); Red Blood Count 4.21 M/uL (4.2-5.4); White Blood Count 6.48 K/uL (4.8-10.8)
[2020-05-10] MEDS: BETAMETHASONE DIP AUG (DIPROLENE) 0.05% CR 15 GM TUBE EXT SCH (08:10)
[2020-05-10] MEDS: OFLOXACIN 0.3% OP SOLN 5 ML BTL OTR SCH (08:10)
[2020-05-10] MEDS: SERTRALINE HCL 100 MG TABLET PO SCH (08:11)
[2020-05-10] MEDS: DOXYCYCLINE HYCLATE 100 MG CAP PO SCH (08:11)
[2020-05-10] MEDS: ENOXAPARIN INJ 30 MG/0.3 ML SYR SQ SCH (08:11)
[2020-05-10 08:14] LABS: BUN Creatinine Ratio 21.5 (10-20); Creatinine Clr Calc Pharmacy 30.5 ml/min; Est GFR (African American) 65.3; Est GFR (Non-African American) 56.4; Potassium 3.4 mmol/L (3.5-5.1)
[2020-05-10] MEDS: FUROSEMIDE 20 MG TAB PO SCH (08:17)
[2020-05-10] MEDS ORDERED: POTASSIUM CHLORIDE 20 MEQ TABCR PO ONE (10:11)
--- NOTE | 2020-05-10 19:33 | Discharge Summary ---
Date of Service May 10, 2020 Admission HPI Per Admitting Provider Suzette Harden is an 84 year old woman with a past medical history significant for COPD with chronic fatigue on exertion (though not on any inhalers), Senorineural hearing loss with hearing aids, OSteoarthritis, Kyphoscoliosis and Frequent falls who presents with frequent falls. She has had four falls in the last 24 hours and more falls than she can count in the past year. She attributes them to her kyphoscoliosis and weakness. She does not endorse any palpitations, any dizziness or lightheadedness, no loss of consciousness at any time. Some of these falls have been witnessed but most occur while she is at home in her yard gardening. She lives alone, her nearest family member is her also elderly sister. Her daughter from [place] is driving in to see patient now and has offered to let her live with her. She has about a sixty pack year smoking history, drinks about 12 bud lights per week, no drug use Lives alone. We had a long discussion about code status and patient at this time would like to be a full code. We talked about pros and cons but she is unsure. She wants to talk to her daughter who is coming in tomorrow and be a full code for now. Hearing and cognitive difficulties made discussion difficult. Principal Diagnosis weakness Discharge Exam gen aao nad heent nc at mmm breathing unlabored no accessory muscles good effort skin no rashes no pallor or icterus no focal neuro deficits Discharge Data Allergies Allergy/AdvReac Type Severity Reaction Status Date / Time No Known Drug Allergies Allergy Verified 05/07/20 11:31 Consultations 05/08/20 22:01 ED Decision to Admit Stat 05/09/20 02:53 Consult Case Management - Discharge Planning Routine Ordered Studies 05/08/20 19:07 CT abd pelvis wo con Stat CT cervical spine wo con Stat CT chest wo con Stat CT head/brain wo con Stat Hospital Course (1) Generalized weakness: (2) Recurrent falls: Falls Thankfully no fractures, no bleed on CT scan Patient does not appear to have UTI, pressure slightly low, but improved with IV fluid holding propranolol - follow vitals echo pending although i don't anticipate significant findings PT/OT - for rehab CHF -uncertain baseline probably chronic HFpEF, but wonder if it's actually all just CHF/pulmonary HTN related -does not appear volume overloaded now -echo noted, COPD -adequate oxygenation (low end of acceptable but still acceptable) -follow -no complaints of dyspnea -pulmonary HTN secondary to this Elevated APTT Suggestive of Intrinsic pathway dysfunction factors VIII IX or XI Patient not on blood thinner unsure of cause Differential including VWD, lupus anticoagulant, malignancy or hemophilia Despite dozens of falls patient has not had any major bleeding events so doubtful that this deficiency is of extreme clinical importance or it would likely have presented itself earlier. With history of weight loss and progressive weakness and advanced age malignancy certainly not out of the question, but no other clear abnormalities on history or labwork Patient does have bruising and hematoma on scalp F/E/N: Regular Diet nutrition consulted DVT PPx: Lovenox 30 mg utilized while here Dispo: rehab (3) Hematoma of left parietal scalp: (4) Cognitive impairment: Total Time Total Time Spent Total Time Spent (In Minutes): <30 Discharge Plan Discharge Items Patient Disposition: Transfer Inpatient Rehab Fac Reason For Visit: FREQUENT FALLS FAILURE TO THRIVE AT HOME Discharge Diagnosis: Mechanical fall Activity: Per Instructions section Non-emergency contact: Primary Care Provider Call non-emergency contact if: your symptoms worsen Follow-up/Referrals: Saroj Martins III, MD [Primary Care Provider] - Diet: Regular Addtl Attending Provider Instructions: Falls - Thankfully no fractures, no bleed on CT scan - Patient does not appear to have UTI, pressure slightly low, but improved with IV fluid - Propranolol held due to blood pressure - continue to hold and restart - PT/OT and case management consulted and rec. for inpatient rehab CHF - uncertain baseline - ECHO with findings of LVSF 65-70%, mild dilated R. ventricle w/ nl. function - does not appear volume overloaded now - continue home lasix COPD - adequate oxygenation (low end of acceptable but still acceptable) - follow - no complaints of dyspnea - will need albuterol inhaler as needed Elevated APTT - Suggestive of Intrinsic pathway dysfunction factors VIII IX or XI - Patient not on blood thinner unsure of cause - Differential including VWD, lupus anticoagulant, malignancy or hemophilia - Despite dozens of falls patient has not had any major bleeding events so doub tful that this deficiency is of extreme clinical importance or it would likely have presented itself earlier. With history of weight loss and progressive weakness and advanced age malignancy certainly not out of the question, but no other clear abnormalities on history or labwork Patient does have bruising and hematoma on scalp Weight loss, unclear cause - patient discloses no changes in diet, w/ nl. appetite, may benefit from further evaluation of diet - continue further evaluation into potential causes including malignancy Pending Studies at Discharge: No Stand-Alone Forms: My [facility] Skilled Items Patient informed of condition?: Yes DNR: No Discharge Level of Care: Skilled Communicable Disease: No Discharge Prognosis: Stable Lines: None Urinary Catheter: No Medications and DC Order Prescriptions: Continued betamethasone dipropionate 0.05 % cream 1 appln TOP BID Qty: 45 RF: 1 cyclobenzaprine 10 mg tablet 10 mg PO TID PRN (Reason: muscle spasm) Qty: 90 RF: 0 propranolol 60 mg capsule,extended release 24 hr 60 mg PO DAILY Qty: 30 RF: 3 sertraline 100 mg tablet 100 mg PO BID Qty: 60 RF: 5 doxycycline hyclate 100 mg capsule 100 mg PO DAILY Qty: 30 RF: 1 furosemide 20 mg tablet 20 mg PO DAILY Qty: 30 RF: 5 ofloxacin 0.3 % drops 5 drp otic (ear) BID 7 Days Qty: 10 RF: 0 Discharge Orders: Discharge Order (Routine); Ordered 05/10/20 Ordered By: Bogdan Prince Admission Data Admit Date/Time: 05/08/20 23:29 Attending Provider: Akbar Samano Admit Provider: Lino Martell Primary Care Provider: Saroj Martins III Other Providers: Yuval Graves ; [facility] Other Interventions: Discharge Summary Assessment (RN) Last Done: 05/10/20 15:18 Coding Level of Care Code D/C Day Management <30 mins Diagnoses Generalized weakness R53.1 Recurrent falls R29.6 Hematoma of left parietal scalp S00.03XA Cognitive impairment R41.89
== END 2020-05-10 15:50 | DRG 92 ==
LOC: ED 18:54 → SUATTDRO 23:29 → 2W 23:29